=== PATIENT | male | born 1995 | race Caucasian/White ===

== ENCOUNTER → 2019-08-18 15:27 | Outpatient (BNVA) | payer MEDICARE, MEDICAID, SELFPAY | PROVIDERS: Family Provider Nurse Practitioner; PCP Nurse Practitioner; Visit Provider Nurse Practitioner | DX: M25.562 Pain in left knee (principal) | CPT/HCPCS: 73562 ==

== ENCOUNTER → 2019-08-31 08:41 | Outpatient (BNVA) | payer MEDICARE, MEDICAID, SELFPAY | PROVIDERS: Family Provider Nurse Practitioner; PCP Nurse Practitioner; Visit Provider Specialist | DX: G40.209 Localization-related (focal) (partial) symptomatic epilepsy and epileptic syndromes with complex partial seizures, not intractable, without status epilepticus (principal) | CPT/HCPCS: 99214 ==

== ENCOUNTER 2019-09-01 06:00 | Outpatient (RCR) | payer MEDICARE, SELFPAY | END 2019-09-27 23:59 | disposition home or self-care (01) | LOC: APT 06:00 | PROVIDERS: Family Provider Nurse Practitioner; PCP Nurse Practitioner; Referring Provider Nurse Practitioner; Visit Provider Nurse Practitioner | DX: M25.562 Pain in left knee (principal) | CPT/HCPCS: 97110; 97161 ==

== ENCOUNTER 2019-11-07 21:01 | Emergency (ER) | payer MEDICARE, MEDICAID, SELFPAY ==
--- NOTE | 2019-11-07 21:16 | XRR_ITS ---
PROCEDURE INFORMATION: Exam: XR Left Knee Exam date and time: 11/07/2019 9:16 PM Age: 24 years old Clinical indication: Pain; Knee; Left; Patient HX: Citrus a pop; Additional info: Injury TECHNIQUE: Imaging protocol: XR Left knee. Views: 3 views. COMPARISON: No relevant prior studies available. FINDINGS: Bones/joints: Normal. Soft tissues: Normal. XR/XR knee LT 3V* [id number] IMPRESSION: No acute findings.
[2019-11-07 21:48] VITALS: BP 103/62; PULSE 92; RESP 18; TEMP 36.8; O2SAT 97; BMI 17.1
--- NOTE | 2019-11-07 22:31 | ED_ITS ---
HPI - Extremity Problem General: Chief complaint: Extremity Injury, Lower Stated complaint: left knee pain Time Seen by Provider: 11/07/19 22:31 Source: patient Mode of arrival: ambulatory Limitations: no limitations History of Present Illness: HPI Narrative: Patient comes in for left knee pain. Patient reports that he was going down the stairs a couple days ago and felt a pop in his knee and has been unable to tolerate going up and down the stairs. Patient has been having problems with his knee since July. Patient appears well. Patient appears in no acute distress. Mother reports patient has Asperger's syndrome and does not express pain very well. 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 Environmental and seasonal allergies Schizencephaly Scoliosis of thoracic spine Vitamin D insufficiency Surgical History History of tonsillectomy and adenoidectomy Status post left foot surgery Bunionectomy Family History Other Cancer Diabetes Lung disease Social History Smoking and tobacco status: never smoked Second hand smoke exposure: No Smoking risk assessment/counseling performed?: No Alcohol intake: never Desire information about alcohol rehabilitation?: No Counseling given: No Desire information about substance/drug rehabilitation?: No Counseling given: No Caregiver/support person: Yes Lives independently: No Household members: family Housing: House Marital status: Single Number of children: 0 service: No Current occupational status: disabled History of recent travel: No Current gender identity: Male Physical Exam Const: COMMON NORMALS: no acute distress and patient oriented x3 GENERAL APPEARANCE: cooperative HENMT: COMMON NORMALS: normocephalic and Normal external nose present HEAD & SCALP: normal to inspection and normocephalic NOSE: Normal external nose present Eye: GENERAL EYE: appearance normal, both eyes and all related structures Neck/C-Spine: COMMON NORMALS: full ROM Chest: COMMONS NORMALS: normal inspection of the chest Resp: COMMON NORMALS: normal respiratory effort EFFORT & INSPECTION: Yes able to speak in complete sentences Cardio: COMMON NORMALS: regular rate and regular rhythm RATE: regular rate RHYTHM: regular rhythm GI: COMMON NORMALS: non-tender Back/Pelvis: COMMON NORMALS: thoracic and lumbar spine normal to inspection Extremity: NARRATIVE EXTREMITY EXAM: Patella is freely mobile but tendon does feel intact to the left knee. No obvious deformity is noted to the knee. Distal pulses are intact. Neuro: COMMON NORMALS: patient oriented x3 and moves all extremities Psych: COMMON NORMALS: mental status grossly normal and cooperative Skin: COMMON NORMALS: no rashes or lesions noted GENERAL SKIN EXAM: no rashes or lesions noted Course Vital Signs: Vital signs: Vital Signs Temperature 98.2 F 11/07/19 21:48 Pulse Rate 92 11/07/19 21:48 Respiratory Rate 18 11/07/19 21:48 Blood Pressure 103/62 11/07/19 21:48 Pulse Oximetry 97 11/07/19 21:48 MDM - Extremity (Nontraumatic) MDM Narrative: Medical decision making narrative: Patient was brought in by mother for concerns of left knee pain. On exam patient has a freely mobile patella with some mild proximal patella tenderness along the tendon. No obvious swelling or redness is noted to the joint. Differential diagnosis includes sprain, patellofemoral syndrome, malingering. X-ray noted no obvious injury. To the patient's increased pain with going up and down the stairs think patient probably has a patellofemoral syndrome. Recommended naproxen for the next 10 days and ice or heat otherwise as needed for pain. We will go ahead and place a case management request for orthopedic follow-up for further evaluation and treatment. Mother reports understanding agreed to plan. Discharge Plan Discharge Patient Disposition: Home, Self-Care Clinical Impression: Patella-femoral syndrome Qualifiers: Laterality: left Qualified Code(s): M22.2X2 - Patellofemoral disorders, left knee Condition: Stable Prescriptions: New naproxen 375 mg tablet,delayed release (DR/EC) 375 mg PO BID Qty: 20 RF: 0 No Action lamotrigine [Lamictal] 200 mg tablet 200 mg PO BID Qty: 60 RF: 5 levetiracetam [Keppra] 500 mg tablet 500 mg PO BID Qty: 60 RF: 6 olanzapine [Zyprexa] 5 mg tablet 5 mg PO DAILY Qty: 30 RF: 5 lorazepam 2 mg tablet 2 mg PO DAILY PRN (Reason: seizures) Qty: 10 RF: 2 Discharge Orders: Discharge Order (Routine); Ordered 11/07/19 Ordered By: Angelito Cook Referrals: Sia Valdez, QUALITY RN-C [Primary Care Provider] - Discharge Diet: Usual diet Discharge Activity: Increase activity as tolerated Patient Instructions: Patellofemoral Pain Syndrome (ED) Activity Restrictions/Additional Instructions: Activity as tolerated. Use acetaminophen for further pain control. Use ice or heat to the area for further comfort. Increase activity as tolerated. Case management will contact you regarding follow-up with orthopedist for further evaluation and treatment. Discharge Date/Time: 11/07/19 23:07 Coding Level of Care Code ED Building Drafting Officer for Makenzie Fwd Exam Comprehensive
--- NOTE | 2019-11-09 12:44 | DCPLANNER ---
business management manager had message to schedule a follow up appointment for patient. business management manager called the ortho clinic, spoke with Pat, gave clinic patients information. business management manager was told that patients information would be printed and reviewed. Clinic will call patient with appointment information.
--- NOTE | 2019-11-11 14:08 | DCPLANNER ---
Patient has a follow up appointment scheduled for Saturday, November 23, 2019 at 1:[address] Velez. Clinic has called patient, unable to speak with patient, a voicemail was left for patient concerning that appointment information.
--- NOTE | 2019-12-10 14:34 | DCPLANNER ---
Patient had a follow up appointment scheduled for 11.23.19 with ortho - patient did attend appointment.
== END 2019-11-07 23:07 | disposition home or self-care (01) ==
PROVIDERS: Emergency Provider Nurse Practitioner Family; PCP Nurse Practitioner
DX: M22.2X2 Patellofemoral disorders, left knee (principal); F84.5 Asperger's syndrome
CPT/HCPCS: 12345; 73562; 99281; 99283

== ENCOUNTER → 2019-11-23 13:05 | Outpatient (BNVA) | payer MEDICARE, MEDICAID, SELFPAY | PROVIDERS: PCP Nurse Practitioner; Referring Provider Nurse Practitioner Family; Visit Provider Specialist | DX: M25.562 Pain in left knee (principal); M25.561 Pain in right knee | CPT/HCPCS: 73560; 73565 ==

== ENCOUNTER 2019-12-03 15:16 | Outpatient (CLI) | payer MEDICARE, MEDICAID, SELFPAY ==
--- NOTE | 2019-12-03 16:00 | MR_ITS ---
WS: [id number] MRI LEFT KNEE HISTORY: M25.569 Pain in unspecified knee COMPARISON: 11/23/2019 Anterior cruciate ligament: Intact. Posterior cruciate ligament: Intact. Medial collateral ligament: Intact. Posterior lateral corner structures: Intact. Medial menisci: Intact. Normal signal, size and shape. Lateral meniscus: Intact. Normal signal, size and shape. Extensor mechanism: Distal quadriceps tendon and patellar tendons are intact. Fluid and soft tissue: There is a small suprapatellar joint effusion. Small amount of edema in the so ft tissues around the patella and infrapatellar fat pad. No Scott's cyst. Osseous and articular structures: Patellofemoral compartment: There is a bony protuberance from the posterior patella. Protuberance is just medial to the patellar eminence. This bony protuberance measures 13 mm in diameter and causing n arrowing of the medial patellar femoral facet. There is edema within the bony protuberance. I suspect this may be from a prior injury with mild displaced fragment and may be partially healed. There is t hinning of the overlying cartilage there is additional mild edema throughout the mid and inferior pat benoit. Medial compartment: Normal. Lateral compartment: Normal. MR/MR knee LT wo con* [id number] IMPRESSION: 1. Abnormal bony or osteochondral lesion involving the posterior patella. Ther e is marrow edema with a bony protuberance measuring 13 mm. Loss of cartilage o teri the medial patellar facet. This may be an osteochondral lesion or displaced fracture fragment or osteochondral fragment. Causing significant narrowing of patellofemoral joint space. 2. Small joint effusion.
== END 2019-12-03 15:17 | disposition home or self-care (01) ==
LOC: RADSHAW 15:27
PROVIDERS: PCP Nurse Practitioner; Visit Provider Specialist
DX: M25.562 Pain in left knee (principal); M25.462 Effusion, left knee; R60.0 Localized edema
CPT/HCPCS: 73721

== ENCOUNTER → 2020-03-10 10:04 | Outpatient (BNVA) | payer MEDICARE, MEDICAID, SELFPAY | PROVIDERS: PCP Nurse Practitioner; Visit Provider Specialist | DX: G40.209 Localization-related (focal) (partial) symptomatic epilepsy and epileptic syndromes with complex partial seizures, not intractable, without status epilepticus (principal) | CPT/HCPCS: 95816 ==

== ENCOUNTER → 2020-07-14 11:50 | Outpatient (BNVA) | payer MEDICARE, MEDICAID, SELFPAY | PROVIDERS: PCP Nurse Practitioner; Visit Provider Nurse Practitioner Family | DX: J02.9 Acute pharyngitis, unspecified (principal); R11.2 Nausea with vomiting, unspecified | CPT/HCPCS: 87071; 87880 ==

== ENCOUNTER → 2020-08-31 12:46 | Outpatient (BNVA) | payer MEDICARE, MEDICAID, SELFPAY | PROVIDERS: PCP Nurse Practitioner; Visit Provider Specialist | DX: G40.209 Localization-related (focal) (partial) symptomatic epilepsy and epileptic syndromes with complex partial seizures, not intractable, without status epilepticus (principal) | CPT/HCPCS: 99214 ==

== ENCOUNTER → 2020-12-02 11:47 | Outpatient (BNVA) | payer MEDICARE, MEDICAID, SELFPAY | PROVIDERS: PCP Nurse Practitioner; Visit Provider Registered Nurse Neonatal Intensive Care | DX: Z20.822 Contact with and (suspected) exposure to COVID-19 (principal) | CPT/HCPCS: 87635 ==

== ENCOUNTER → 2021-03-07 09:35 | Outpatient (BNVA) | payer MEDICARE, MEDICAID, SELFPAY | PROVIDERS: PCP Nurse Practitioner; Visit Provider Specialist | DX: G40.209 Localization-related (focal) (partial) symptomatic epilepsy and epileptic syndromes with complex partial seizures, not intractable, without status epilepticus (principal); F84.5 Asperger's syndrome; Q04.9 Congenital malformation of brain, unspecified | CPT/HCPCS: 99214 ==

== ENCOUNTER → 2021-09-05 09:17 | Outpatient (BNVA) | payer MEDICARE, MEDICAID, SELFPAY | PROVIDERS: PCP Nurse Practitioner; Visit Provider Specialist | DX: G40.209 Localization-related (focal) (partial) symptomatic epilepsy and epileptic syndromes with complex partial seizures, not intractable, without status epilepticus (principal); F84.5 Asperger's syndrome; Q04.9 Congenital malformation of brain, unspecified | CPT/HCPCS: 99213; 99214 ==

== ENCOUNTER 2021-09-24 18:11 | Emergency (ER) | payer MEDICARE, MEDICAID, SELFPAY ==
[2021-09-24 18:14] VITALS: BP 107/73; PULSE 82; RESP 12; TEMP 36.3; O2SAT 97; BMI 17.1
--- NOTE | 2021-09-24 18:26 | CTR_ITS ---
PROCEDURE INFORMATION: Exam: CT Abdomen And Pelvis With Contrast Exam date and time: 09/24/2021 7:17 PM Age: 26 years old Clinical indication: Nausea and vomiting; Abdominal pain; Generalized; Additional info: Abdominal pain, nausea, vomiting, hematemesis TECHNIQUE: Imaging protocol: Computed tomography of the abdomen and pelvis with contrast. Radiation optimization: All CT scans at this facility use at least one of these dose optimization techniques: automated exposure control; mA and/or kV adjustment per patient size (includes targeted exams where dose is matched to clinical indication); or iterative reconstruction. Contrast material: OMNI 300; Contrast volume: 50 ml; Contrast route: INTRAVENOUS (IV); COMPARISON: No relevant prior studies available. RADIATION DOSE METRICS: Total DLP (mGy-cm): 757.42 FINDINGS: Liver: Periportal edema with differential diagnosis including but not limited to hepatitis, cholangitis, passive hepatic congestion or volume overload. Gallbladder and bile ducts: See Liver finding. Pancreas: Normal. No ductal dilation. Spleen: Normal. No splenomegaly. Adrenal glands: Normal. No mass. Kidneys and ureters: Normal. No hydronephrosis. Stomach and bowel: Unremarkable. No obstruction. No mucosal thickening. Appendix: Normal appendix. Intraperitoneal space: Unremarkable. No free air. No significant fluid collection. Vasculature: One or more calcified pelvic phleboliths. Lymph nodes: Unremarkable. No enlarged lymph nodes. Urinary bladder: Unremarkable as visualized. Reproductive: Unremarkable as visualized. Bones/joints: Unremarkable. No acute fracture. Soft tissues: Unremarkable. CT/CT abdomen pelvis w con* [id number] IMPRESSION: Periportal edema with differential diagnosis including but not limited to hepatitis, cholangitis, passive hepatic congestion or volume overload.
--- NOTE | 2021-09-24 18:27 | CTR_ITS ---
PROCEDURE INFORMATION: Exam: CT Head Without Contrast Exam date and time: 09/24/2021 7:13 PM Age: 26 years old Clinical indication: Pain; Headache; Additional info: PRINCE TECHNIQUE: Imaging protocol: Computed tomography of the head without contrast. Radiation optimization: All CT scans at this facility use at least one of these dose optimization techniques: automated exposure control; mA and/or kV adjustment per patient size (includes targeted exams where dose is matched to clinical indication); or iterative reconstruction. COMPARISON: CT head wo con* [id number] 11/05/2014 5:55 PM RADIATION DOSE METRICS: Total DLP (mGy-cm): 929.33 FINDINGS: Brain: Normal. No hemorrhage. Unremarkable white matter. No mass effect. Cerebral ventricles: No ventriculomegaly. Paranasal sinuses: Visualized sinuses are unremarkable. No fluid levels. Mastoid air cells: Visualized mastoid air cells are well aerated. Bones/joints: Unremarkable. No acute fracture. Soft tissues: Unremarkable. CT/CT head wo con* [id number] IMPRESSION: No acute intracranial abnormality.
--- NOTE | 2021-09-24 18:28 | W.ED.ABDPA2 ---
HPI - Abdominal Pain General: Chief Complaint: Abdominal Pain Stated Complaint: vomiting blood Time Seen by Provider: 09/24/21 18:20 History of Present Illness: 26-year-old presents due to headache abdominal pain nausea and vomiting. States this started today. Reports mild frontal headache. Denies any neck pain. Denies any fevers or chills. Denies any focal numbness or tingling. Reports that after dinner he felt nauseous and had an episode of hematemesis. Denies any blood in stool. Denies any diarrhea or constipation. Diffuse achy abdominal pain without radiation. Denies any dysuria. Denies any testicular pain. Denies any recent head injury or blood thinner use. Review of Systems Narrative: - CONSTITUTIONAL: Denies weight loss, fever and chills. - HEENT: Denies changes in vision and hearing. - RESPIRATORY: Denies SOB and cough. - CV: Denies palpitations and CP. - GI: As above - : Denies dysuria and urinary frequency. - MSK: Denies myalgia and joint pain. - SKIN: Denies rash and pruritus. 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 Environmental and seasonal allergies Schizencephaly Scoliosis of thoracic spine Vitamin D insufficiency Surgical History History of tonsillectomy and adenoidectomy Status post left foot surgery Bunionectomy Family History Other Cancer Diabetes Lung disease Social History Smoking and tobacco status: never smoked Second hand smoke exposure: No Smoking risk assessment/counseling performed?: No Alcohol intake: never Desire information about alcohol rehabilitation?: No Counseling given: No Desire information about substance/drug rehabilitation?: No Counseling given: No Caregiver/support person: Yes Lives independently: No Household members: family Housing: House Marital status: Single Number of children: 0 service: No Current occupational status: disabled History of recent travel: No Current gender identity: Male Physical Exam Narrative: EXAM NARRATIVE: - GENERAL: Alert and oriented x 3. No acute distress. Well-nourished. - EYES: EOMI. Anicteric. - HENT: Atraumatic, no C-spine tenderness. Moist mucous membranes. No scleral icterus. No cervical lymphadenopathy. - LUNGS: Clear to auscultation bilaterally. No accessory muscle use. Equal lung sounds bilaterally. No respiratory distress. - CARDIOVASCULAR: Regular rate and rhythm. No murmur. No JVD. - ABDOMEN: Soft, mild diffuse tenderness, non-distended. Negative CVA tenderness bilaterally, no rebound or guarding, negative Herman sign. No palpable masses. - EXTREMITIES: No edema. Non-tender. - SKIN: No rashes or lesions. Warm. - NEUROLOGIC: No meningismus or focal neurological deficits. CN II-XII grossly intact. - PSYCHIATRIC: Cooperative. Appropriate mood and affect. Course Vital Signs: Vital signs: Vital Signs Temperature 97.4 F L 09/24/21 18:14 Pulse Rate 63 09/24/21 20:30 Respiratory Rate 16 09/24/21 20:30 Blood Pressure 99/62 09/24/21 20:30 Pulse Oximetry 98 09/24/21 20:30 MDM - Abdominal Pain Medical Decision Making 26-year-old presents for headache abdominal pain nausea and vomiting. Nonfocal neurologic sign. Is no meningismus. No clinical signs of elevated intracranial pressure. CT scan of the head does not reveal any intracranial hemorrhage or other acute abnormality. Lab work unremarkable. CT scan of the abdomen pelvis reveals possible portal congestion. Ultrasound reveals gallbladder wall thickening but there is no sonographic Herman sign. His abdominal pain is diffuse. LFTs are within normal. Discussed with surgeon on-call at this time does not recommend admission or cholecystectomy. Prescription for Bentyl and Zofran provided. At this time I believe patient would be safe for discharge and outpatient follow-up. Return precautions provided. Plan was reviewed with the patient who expressed understanding. Questions answered. Patient will follow up with PCP. Patient discharged in stable condition. Lab Data : 09/24/21 18:30 09/24/21 18:30 Labs/Radiology: Radiology Impressions Abdomen/Pelvis CT 09/24/21 18:26 IMPRESSION: Periportal edema with differential diagnosis including but not limited to hepatitis, cholangitis, passive hepatic congestion or volume overload. Head CT 09/24/21 18:27 IMPRESSION: No acute intracranial abnormality. Abdomen Ultrasound 09/24/21 20:13 IMPRESSION: Possible 4.5 mm gallbladder wall thickening cholecystitis. In the presence of periportal edema on CT scan, this is most likely secondary to hepatitis. Laboratory Results WBC 4.8 10^3/uL (4.0-10.0) 09/24/21 18: RBC 4.56 10^6/uL (4.1-5.3) 09/24/21 18: Hgb 13.6 g/dL (11.7-16.6) 09/24/21 18: Hct 40.3 % (42.0-52.0) L 09/24/21 18: MCV 88.4 fl (80-94) 09/24/21 18: MCH 29.8 pg (28.0-34.0) 09/24/21 18: MCHC 33.7 g/dL (30.0-36.0) 09/24/21 18: RDW 12.3 % (12.1-15.1) 09/24/21 18: Plt Count 193 10^3/cmm (130-400) 09/24/21 18: MPV 9.8 fL (7.4-10.4) 09/24/21 18: Neut % (Auto) 51.4 % 09/24/21 18:30 Lymph % (Auto) 38.4 % 09/24/21 18:30 [place] % (Auto) 9.8 % 09/24/21 18: Eos % (Auto) 0.0 % 09/24/21 18: Baso % (Auto) 0.0 % 09/24/21 18:30 Neut # (Auto) 2.46 10^3/uL (1.8-7.7) 09/24/21 18: Lymph # (Auto) 1.8 10^3/uL (0.8-4.8) 09/24/21 18: [place] # (Auto) 0.5 10^3/uL (0.2-0.9) 09/24/21 18:30 Eos # (Auto) 0.0 10^3/uL (0.0-0.8) 09/24/21 18: Baso # (Auto) 0.0 10^3/uL (0.0-0.1) 09/24/21 18:30 Nucleated RBC % (auto) 0 % 09/24/21 18: Nucleated RBCs # 0.0 /100WBC 09/24/21 18:30 PT 16.40 SECONDS (12.1-14.9) H 09/24/21 18:38 INR 1.28 (0.8-1.2) H 09/24/21 18:38 APTT 35.3 SECONDS (23.9-36.7) 09/24/21 18:38 Sodium 135 mmol/L (136-145) L 09/24/21 18:30 Potassium 3.6 mmol/L (3.5-5.1) 09/24/21 18: Chloride 96 mmol/L (98-107) L 09/24/21 18: Carbon Dioxide 29 mmol/L (22-29) 09/24/21 18:30 Anion Gap 13.6 (5-19) 09/24/21 18: BUN 3 mg/dL (6-20) L 09/24/21 18:30 Creatinine 0.8 mg/dL (0.7-1.2) 09/24/21 18: GFR Calculation 117.8 mL/min (90-130) 09/24/21 18: Glucose 86 mg/dL (65-115) 09/24/21 18: Calculated Osmolality 276 mOsm/kg (285-295) L 09/24/21 18: Calcium 9.2 mg/dL (8.5-10.5) 09/24/21 18: Total Bilirubin 0.5 mg/dL (0.15-1.2) 09/24/21 18:30 AST 20 U/L (0-40) 09/24/21 18:30 ALT 16 U/L (0-41) 09/24/21 18:30 Alkaline Phosphatase 123 IU/L (40-130) 09/24/21 18:30 Total Protein 7.2 g/dL (6.6-8.7) 09/24/21 18:30 Albumin 4.7 g/dL (3.5-5.2) 09/24/21 18: Globulin 2.5 g/dL (1.3-4.6) 09/24/21 18:30 Lipase 33 U/L (13-60) 09/24/21 18:30 Urine Color Straw (Yellow) 09/24/21 18:50 Urine Appearance Clear (CLEAR) 09/24/21 18:50 Urine pH 6.5 (5-7) 09/24/21 18:50 Ur Specific [place] 1.005 (1.005-1.030) 09/24/21 18:50 Urine Protein Neg (Negative) 09/24/21 18:50 Urine Glucose (UA) Norm (Normal) 09/24/21 18:50 Urine Ketones Negative (Negative) 09/24/21 18:50 Urine Blood Neg (Negative) 09/24/21 18:50 Urine Nitrate Negative (Negative) 09/24/21 18:50 Urine Bilirubin Neg (Negative) 09/24/21 18:50 Urine Urobilinogen Norm mg/dL (Negative) 09/24/21 18:50 Ur Leukocyte Esterase Negative (Negative) 09/24/21 18:50 Urine RBC None /hpf (0-2) 09/24/21 18:50 Urine WBC None /hpf (0-5) 09/24/21 18:50 Ur Squamous Epith Cells None /hpf (0-5) 09/24/21 18:50 Amorphous Sediment Not Reportable 09/24/21 18:50 Urine Bacteria None /hpf (NONE) 09/24/21 18:50 SARS-CoV-2 Ag (Rapid) Negative (Negative) 09/24/21 18:50 Discharge Plan Discharge Patient Disposition: Home Clinical Impression: Abdominal pain, Headache Condition: Stable Prescriptions: New ondansetron 4 mg tablet,disintegrating 4 mg PO DAILY PRN (Reason: nausea and vomiting) 3 Days Qty: 10 0RF dicyclomine 20 mg tablet 20 mg PO TID Qty: 14 0RF No Action ondansetron HCl [Zofran] 4 mg tablet 4 mg PO Q8H PRN (Reason: nausea and vomiting) 7 Days Qty: 21 0RF lamotrigine [Lamictal] 200 mg tablet 200 mg PO BID Qty: 60 5RF levetiracetam [Keppra] 500 mg tablet 500 mg PO BID Qty: 60 5RF lorazepam 2 mg tablet 2 mg PO DAILY PRN (Reason: seizures) Qty: 30 5RF olanzapine 10 mg tablet 10 mg PO DAILY Qty: 30 5RF naproxen 375 mg tablet,delayed release (DR/EC) 375 mg PO BID Qty: 20 0RF Discharge Orders: Discharge ED (Routine); Ordered 09/24/21 Ordered By: Stephan Friend Referrals: Sia Valdez FNP-C [Primary Care Provider] - 1-3 days Patient Instructions: Acute Headache (ED), Abdominal Pain (ED), Opioid Safety Coding Level of Care Code ED Billing Machine Operator for Makenzie Medina
[2021-09-24 18:36] LABS: Hematocrit 40.3 % (42.0-52.0); Hemoglobin 13.6 g/dL (11.7-16.6); Lymphocytes # 1.8 10^3/uL (0.8-4.8); Lymphocytes % 38.4 %; Mean Corpuscular HGB Conc 33.7 g/dL (30.0-36.0); Mean Corpuscular Hemoglobin 29.8 pg (28.0-34.0); Mean Corpuscular Volume 88.4 fl (80-94); Mean Platelet Volume 9.8 fL (7.4-10.4); Monocytes # 0.5 10^3/uL (0.2-0.9); Monocytes % 9.8 %; Neutrophils # 2.46 10^3/uL (1.8-7.7); Neutrophils % 51.4 %; Nucleated Red Blood Cells % 0 %; Platelet Count 193 10^3/cmm (130-400); Red Blood Count 4.56 10^6/uL (4.1-5.3); Red Cell Distribution Width 12.3 % (12.1-15.1); White Blood Count 4.8 10^3/uL (4.0-10.0)
[2021-09-24] MEDS: sodium chloride 0.9% 1,000 ML 999 ML IV (18:45)
[2021-09-24] MEDS: pantoprazole 40 mg SDV IVP (18:46)
[2021-09-24] MEDS: ondansetron 2 mg/ML SDV 2 mL 4 MG IVP (18:46)
[2021-09-24 18:49] VITALS: BP 119/77; PULSE 68; RESP 18; O2SAT 96
[2021-09-24 18:53] LABS: Alanine Aminotransferase 16 U/L (0-41); Albumin Level 4.7 g/dL (3.5-5.2); Alkaline Phosphatase 123 IU/L (40-130); Anion Gap 13.6 (5-19); Aspartate Amino Transferase 20 U/L (0-40); Blood Urea Nitrogen 3 mg/dL (6-20); Calcium 9.2 mg/dL (8.5-10.5); Carbon Dioxide 29 mmol/L (22-29); Chloride 96 mmol/L (98-107); Globulin 2.5 g/dL (1.3-4.6); Glomerular Filtration Rate 117.8 mL/min (90-130); Glucose 86 mg/dL (65-115); Lipase 33 U/L (13-60); Osmolality Calculated 276 mOsm/kg (285-295); Potassium 3.6 mmol/L (3.5-5.1); Sodium 135 mmol/L (136-145); Total Bilirubin 0.5 mg/dL (0.15-1.2); Total Protein 7.2 g/dL (6.6-8.7)
[2021-09-24 18:55] LABS: INR 1.28 (0.8-1.2)
[2021-09-24 18:56] LABS: Partial Thromboplastin Time 35.3 SECONDS (23.9-36.7)
[2021-09-24 19:08] LABS: Bilirubin Urine Neg (Negative); Blood Urine Neg (Negative); Glucose Urine UA Norm (Normal); Ketones Urine Negative (Negative); Nitrate Urine Negative (Negative); Protein Urine Neg (Negative); Specific Gravity, Urine 1.005 (1.005-1.030); Urine Appearance Clear (CLEAR); Urine Color Straw (Yellow); Urobilinogen Urine Norm (Negative); pH Urine 6.5 (5-7)
[2021-09-24 19:09] LABS: Add Urine Culture? No; Leukocyte Esterase Urine Negative (Negative)
[2021-09-24 19:30] VITALS: BP 111/76; PULSE 77; RESP 18; O2SAT 98
[2021-09-24 19:32] LABS: SARS Covid-2 Antigen Negative (Negative)
[2021-09-24 20:00] VITALS: BP 93/63; PULSE 63; RESP 20; O2SAT 97
--- NOTE | 2021-09-24 20:13 | USR_ITS ---
PROCEDURE INFORMATION: Exam: US Abdomen, Limited; Right Upper Quadrant Exam date and time: 09/24/2021 8:26 PM Age: 26 years old Clinical indication: Vomiting; Additional info: Ruq portal congestion on CT TECHNIQUE: Imaging protocol: US abdomen. Real time ultrasound with image documentation. Limited exam focused on the right upper quadrant. COMPARISON: CT abdomen pelvis w con* [id number] 09/24/2021 7:17 PM FINDINGS: Liver: 16.9 cm liver. Gallbladder: Possible 4.5 mm gallbladder wall thickening cholecystitis. In the presence of periportal edema on CT scan, this is most likely secondary to hepatitis. Biliary ducts: 3 mm common bile duct. Pancreas: Visualized pancreas is unremarkable. Right kidney: Normal. No mass. No hydronephrosis. Aorta: 1.7 cm abdominal aortic diameter. Inferior vena cava: 2.1 cm IVC. US/US abdomen limited [id number] IMPRESSION: Possible 4.5 mm gallbladder wall thickening cholecystitis. In the presence of periportal edema on CT scan, this is most likely secondary to hepatitis.
[2021-09-24 20:30] VITALS: BP 99/62; PULSE 63; RESP 16; O2SAT 98
[2021-09-24] MEDS: iohexol 300 mg/mL 100 mL Btl IV (23:16)
== END 2021-09-24 22:23 | disposition home or self-care (01) ==
PROVIDERS: Emergency Provider Emergency Medicine; PCP Nurse Practitioner
DX: R10.9 Unspecified abdominal pain (principal); R51.9 Headache, unspecified; R11.2 Nausea with vomiting, unspecified; Z20.822 Contact with and (suspected) exposure to COVID-19
CPT/HCPCS: 70450; 74177; 76705; 80053; 81001; 83690; 85025; 85610; 85730; 87426; 96361; 96374; 96375; 99284; C9113; J2405; J7030; Q9967

== ENCOUNTER → 2021-09-29 10:16 | Outpatient (BNVA) | payer MEDICARE, MEDICAID, SELFPAY | PROVIDERS: PCP Nurse Practitioner; Visit Provider Nurse Practitioner Family | DX: K81.9 Cholecystitis, unspecified (principal); R93.2 Abnormal findings on diagnostic imaging of liver and biliary tract | CPT/HCPCS: 80053; 82150; 83690; 85025 ==

== ENCOUNTER → 2021-10-04 13:14 | Outpatient (BNVA) | payer MEDICARE, MEDICAID, SELFPAY | PROVIDERS: PCP Nurse Practitioner; Visit Provider Surgery | DX: K92.0 Hematemesis (principal); R10.9 Unspecified abdominal pain | CPT/HCPCS: 99203 ==

== ENCOUNTER 2021-11-16 06:13 | Day surgery (SDC) | payer MEDICARE, MEDICAID, SELFPAY ==
[2021-11-14 08:47] VITALS: BMI 16.9
[2021-11-16 06:55] VITALS: BP 130/76; PULSE 85; RESP 18; TEMP 36.2; O2SAT 96
[2021-11-16] MEDS: sodium chloride 0.9% 1,000 ML 30 ML IV (07:09)
--- NOTE | 2021-11-16 08:05 | PM.HP ---
Providers/Chief Complaint Primary Care Provider: KARLENE Cardenas Chief Complaint: Nausea vomiting abdominal pain hematemesis History of Present Illness Geraldo Manuel is a 26 year old male, with mental deficiencies, who presented to the office with complaints of nausea and vomiting with overexertion on hot days followed by hematemesis. Patient's mother reports that he gets epigastric pain at times not related to food intake. The pain does not radiate. Gallbladder ultrasound was essentially normal but did show some perihepatic fluid. This is an update H&P Review of Systems General: Reports: 10 or more systems reviewed and unremarkable except in HPI and below Medications/Allergies Home Medications Medication Instructions Recorded Confirmed Last Taken Type ondansetron HCl 4 mg tablet 4 mg PO Q8H PRN 7 Days #21 tab 07/14/20 11/16/21 11/14/21 Rx (Zofran) lamotrigine 200 mg tablet 200 mg PO BID #60 tab 09/05/21 11/16/21 11/16/21 Rx (Lamictal) 0600 levetiracetam 500 mg tablet 500 mg PO BID #60 tab 09/05/21 11/16/21 11/16/21 Rx (Keppra) 0600 lorazepam 2 mg tablet 2 mg PO DAILY PRN #30 tab 09/05/21 11/16/21 11/14/21 Rx olanzapine 10 mg tablet 10 mg PO DAILY #30 tab 09/05/21 11/16/21 11/15/21 Rx naproxen 375 mg tablet,delayed 375 mg PO PRN 11/16/21 11/16/21 11/02/21 History release Allergies Allergy/AdvReac Type Severity Reaction Status Date / Time risperidone [From Risperdal] AdvReac Severe Seizure Verified 11/14/21 08:41 like activity PFSH Acute PFSH: Medical History ADD (attention deficit disorder) ADHD Adult attention deficit disorder Asperger's syndrome 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 Environmental and seasonal allergies Schizencephaly Scoliosis of thoracic spine Vitamin D insufficiency Surgical History History of tonsillectomy and adenoidectomy Status post left foot surgery Bunionectomy Family History Other Cancer Diabetes Lung disease Social History Smoking and tobacco status: never smoked Second hand smoke exposure: No Smoking risk assessment/counseling performed?: No Alcohol intake: never Desire information about alcohol rehabilitation?: No Counseling given: No Desire information about substance/drug rehabilitation?: No Counseling given: No Caregiver/support person: Yes Lives independently: No Household members: family Housing: House Marital status: Single Number of children: 0 service: No Current occupational status: disabled History of recent travel: No Current gender identity: Male Vitals/I&O/Wt Last Vital Signs Temp 97.1 F L 11/16/21 06:55 Pulse 85 11/16/21 06:55 Resp 18 11/16/21 06:55 BP 130/76 11/16/21 06:55 Pulse Ox 96 11/16/21 06:55 Weight last 48 hrs Weight 125 lb Physical Exam Narrative: General : Patient is well developed , no acute distress, oriented x3 Head : Normal cephalic, a-traumatic. Ears : Pinnae and external canal are normal. Hearing is normal. Eyes : PERRLA, Sclera and injection are normal. No conjunctival discharge. Nose : Mucous membranes are without erythema. Throat : buccal mucosa is normal, gums are without significant recession or hypertrophy. Lungs : Equal chest rise bilaterally, no use of accessory muscles, trachea is midline. Cor : Rate and rhythm are normal. Abdomen : Soft, ND, NT, no g/r/m Extremities : No edema, no cyanosis or clubbing, dorsalis pedis pulses are present bilaterally, non-tender to palpation of calves. Upper extremities are normal bilaterally. Back : non-tender to palpation, no CVA tenderness. Neuro : CN II - XII intact, Upper and lower extremities have equal and full strength A&P Assessment and plan (1) Hematemesis: Status: Acute (2) Abdominal pain: Status: Acute Plan EGD The risks and benefits of the procedure, including bleeding, infection, intestinal perforation requiring surgery, missed lesion, or explained to the patient. He is understanding of the risks and wishes to proceed. Attestations Medical Necessity Statement*: Patient will be discharged home Coding Level of Care Code Acute Special Needs Bus Driver for [facility] Fwd Diagnoses Hematemesis K92.0 Abdominal pain R10.9
--- NOTE | 2021-11-16 08:11 | ANES.PREANE2 ---
Pre-Anesthetic Assessment Height/Weight: Height 1.83 m Weight 56.699 kg Temp Pulse Resp BP Pulse Ox 97.1 F L 85 18 130/76 96 11/16/21 06:55 11/16/21 06:55 11/16/21 06:55 11/16/21 06:55 11/16/21 06:55 Operation Date: 11/16/21 08:00 Proposed Procedures p EGD 04822,R10.9,K92.0(Not Applicable) - Daryn Schultz DO Familial anesthetic complications: none Was Beta Tesha taken within 24 hours: N/A Was Clonidine taken within 24 hours: N/A Last intake: Intake Last Liquid Date 11/15/21 Last Liquid Time 19:00 Last Solid Date 11/15/21 Last Solid Time 17:00 Social No alcohol and No tobacco Exam alert, oriented x 3, clear to auscultation bilaterally and regular rate & rhythm Airway Submandibular: within normal limits Cervical ROM: within normal limits Mallampati: Class II Dentition: chipped Neuropsych Seizure Asperger's Anesthetic Plan ASA status: 2 Anesthesia: MAC Medications/Allergies Home Medications Medication Instructions Recorded Confirmed Last Taken Type ondansetron HCl 4 mg tablet 4 mg PO Q8H PRN 7 Days #21 tab 07/14/20 11/16/21 11/14/21 Rx (Zofran) lamotrigine 200 mg tablet 200 mg PO BID #60 tab 09/05/21 11/16/21 11/16/21 Rx (Lamictal) 0600 levetiracetam 500 mg tablet 500 mg PO BID #60 tab 09/05/21 11/16/21 11/16/21 Rx (Keppra) 0600 lorazepam 2 mg tablet 2 mg PO DAILY PRN #30 tab 09/05/21 11/16/21 11/14/21 Rx olanzapine 10 mg tablet 10 mg PO DAILY #30 tab 09/05/21 11/16/21 11/15/21 Rx naproxen 375 mg tablet,delayed 375 mg PO PRN 11/16/21 11/16/21 11/02/21 History release Allergies Allergy/AdvReac Type Severity Reaction Status Date / Time risperidone [From Risperdal] AdvReac Severe Seizure Verified 11/14/21 08:41 like activity Current Medications Generic Name Dose Route Start Last Admin Trade Name Freq PRN Reason Stop Dose Admin Sodium Chloride 1,000 mls @ 30 mls/hr 11/16/21 07:00 11/16/21 07:09 Sodium Chloride 0.9% IV 11/17/21 06:59 30 mls/hr .Q24H DERRICK Administration PFSH Anesthesia Medical History (Updated 10/04/21 @ 14:04 by Daryn Schultz DO) ADD (attention deficit disorder) ADHD Adult attention deficit disorder Asperger's syndrome 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 Environmental and seasonal allergies Schizencephaly Scoliosis of thoracic spine Vitamin D insufficiency Surgical History History of tonsillectomy and adenoidectomy Status post left foot surgery Bunionectomy Family History Other Cancer Diabetes Lung disease Social History Smoking and tobacco status: never smoked Second hand smoke exposure: No Smoking risk assessment/counseling performed?: No Alcohol intake: never Desire information about alcohol rehabilitation?: No Counseling given: No Desire information about substance/drug rehabilitation?: No Counseling given: No Caregiver/support person: Yes Lives independently: No Household members: family Housing: House Marital status: Single Number of children: 0 service: No Current occupational status: disabled History of recent travel: No Current gender identity: Male Data Anesthesia Cardiac Studies: No Data to Display
[2021-11-16 08:49] VITALS: BP 103/65; PULSE 74; RESP 18; TEMP 36.7; O2SAT 98
[2021-11-16 09:15] VITALS: BP 112/64; PULSE 72; RESP 18; O2SAT 98
--- NOTE | 2021-11-16 16:16 | ANE.PACU2 ---
Inpatient post-anesthesia follow up: Airway intact: Yes Vital signs: Temperature 98.0 F Pulse Rate 72 Respiratory Rate 18 Blood Pressure 112/64 Pulse Oximetry 98 Oxygen Delivery Me thod Room Air Oxygen Flow Rate Fraction of Inspir ed Oxygen Hydration adequate: Yes Nausea and vomiting: No Pain level: 1 Mental status: Baseline
== END 2021-11-16 09:16 | disposition home or self-care (01) ==
PROVIDERS: PCP Nurse Practitioner; Visit Provider Surgery
PROC: 0DJ08ZZ Inspection of Upper Intestinal Tract, Via Natural or Artificial Opening Endoscopic (ICD-10-PCS; CPT 43235; principal; 2021-11-16 08:00)
DX: K92.0 Hematemesis (principal); R10.9 Unspecified abdominal pain; F98.8 Other specified behavioral and emotional disorders with onset usually occurring in childhood and adolescence; F90.9 Attention-deficit hyperactivity disorder, unspecified type
CPT/HCPCS: 43235; J2704; J7030

== ENCOUNTER → 2021-11-22 08:26 | Outpatient (BNVA) | payer MEDICARE, MEDICAID, SELFPAY | PROVIDERS: PCP Nurse Practitioner; Visit Provider Nurse Practitioner Family | DX: K81.9 Cholecystitis, unspecified (principal); R93.2 Abnormal findings on diagnostic imaging of liver and biliary tract; Z11.59 Encounter for screening for other viral diseases | CPT/HCPCS: 86705; 86706; 86709; 86803; 87340 ==

== ENCOUNTER 2021-12-24 13:26 | Emergency (ER) | payer MEDICARE, MEDICAID, SELFPAY ==
[2021-12-24 13:51] VITALS: BP 100/65; PULSE 91; RESP 16; TEMP 36.4; O2SAT 97; BMI 17.6
--- NOTE | 2021-12-24 14:03 | XRR_ITS ---
PROCEDURE INFORMATION: Exam: XR Right Forearm Exam date and time: 12/24/2021 2:28 PM Age: 26 years old Clinical indication: Injury or trauma; Fall; Blunt trauma (contusions or hematomas); Arm, lower; Right; Additional info: Pain after injury yesterday TECHNIQUE: Imaging protocol: Radiologic exam of the Right forearm. Views: 2 views. COMPARISON: No relevant prior studies available. FINDINGS: Bones/joints: Slight anteromedial bowing of the proximal radial shaft with no discrete fracture line or callus formation. Considerations include acute plastic bowing injury (which is somewhat rare in adult) versus developmental/chronic posttraumatic deformity. Clinical correlation is needed. No dislocation. Complete closures of all physes are observed. Soft tissues: Normal. Other findings: Two views submitted. XR/XR forearm RT 2V [id number] IMPRESSION: Slight bowing of the proximal radial shaft with no discrete fracture line. See discussion above.
--- NOTE | 2021-12-24 14:03 | W.ED.EXTPRO ---
HPI - Extremity Problem General: Chief complaint: Extremity Injury, Upper Stated complaint: arm injury Time Seen by Provider: 12/24/21 14:02 Source: patient and family Mode of arrival: ambulatory Limitations: physical limitation History of Present Illness: 26-year-old male with history of seizure disorder, epilepsy, and Asperger's syndrome presents to the ER with mother today for right forearm pain. Patient was out of [employer] event yesterday and had a seizure, falling and striking his right arm on the bleachers. Mother reports he had a midshaft. Patient seemed okay yesterday however started complaining last night and then is still complaining this morning of his right arm hurting. Mother reports patient does not normally complain of pain at all. Mother denies any swelling or bruising. Patient has full range of motion but does complain of pain. 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 Environmental and seasonal allergies Schizencephaly Scoliosis of thoracic spine Vitamin D insufficiency Surgical History History of tonsillectomy and adenoidectomy Status post left foot surgery Bunionectomy Family History Other Cancer Diabetes Lung disease Social History Smoking and tobacco status: never smoked Second hand smoke exposure: No Smoking risk assessment/counseling performed?: No Alcohol intake: never Desire information about alcohol rehabilitation?: No Counseling given: No Desire information about substance/drug rehabilitation?: No Counseling given: No Caregiver/support person: Yes Lives independently: No Household members: family Housing: House Marital status: Single Number of children: 0 service: No Current occupational status: disabled History of recent travel: No Current gender identity: Male Physical Exam Const: COMMON NORMALS: no acute distress, average body habitus, healthy appearing, alert and well nourished Resp: COMMON NORMALS: normal respiratory effort EFFORT & INSPECTION: Yes able to speak in complete sentences Cardio: COMMON NORMALS: regular rate and regular rhythm RATE: regular rate RHYTHM: regular rhythm Extremity: NARRATIVE EXTREMITY EXAM: Patient has mild tenderness of the proximal radius of the right forearm. Normal range of motion. No obvious swelling or deformity is noted. Patient's right arm appears to be congenitally smaller than the left arm. Neuro: SENSORIUM/ORIENTATION: Yes alert Psych: COMMON NORMALS: cooperative Skin: COMMON NORMALS: no rashes or lesions noted and no wounds GENERAL SKIN EXAM: no rashes or lesions noted Course ED course: 26-year-old male with history of seizure disorder, epilepsy, and Asperger's syndrome presents to the ER with mother today for right forearm pain. Patient was out of [employer] event yesterday and had a seizure, falling and striking his right arm on the bleachers. Mother reports he had a midshaft. Patient seemed okay yesterday however started complaining last night and then is still complaining this morning of his right arm hurting. Mother reports patient does not normally complain of pain at all. Mother denies any swelling or bruising. Patient has full range of motion but does complain of pain. We will get x-ray of the forearm today. Vital Signs: Vital signs: Vital Signs Temperature 97.6 F 12/24/21 13:51 Pulse Rate 91 12/24/21 13:51 Respiratory Rate 16 12/24/21 13:51 Blood Pressure 100/65 12/24/21 13:51 Pulse Oximetry 97 12/24/21 13:51 Oxygen Delivery Me thod 12/24/21 13:51 MDM - Extremity (Nontraumatic) Medical Decision Making 26-year-old male with history of seizure disorder, epilepsy, and Asperger's syndrome presents to the ER with mother today for right forearm pain. Patient was out of [employer] event yesterday and had a seizure, falling and striking his right arm on the bleachers. Mother reports he had a midshaft. Patient seemed okay yesterday however started complaining last night and then is still complaining this morning of his right arm hurting. Mother reports patient does not normally complain of pain at all. Mother denies any swelling or bruising. Patient has full range of motion but does complain of pain. X-ray of the forearm is normal. Patient likely has a contusion. Recommended ice and ibuprofen for pain. Follow-up with PCP in 7 to 10 days if no improvement. Return to the ER with any new or worsening symptoms. Mother verbalized understanding and was in agreement with the treatment plan. Lab Data Radiology Impressions Forearm X-Ray 12/24/21 14:03 IMPRESSION: Slight bowing of the proximal radial shaft with no discrete fracture line. See discussion above. Critical Care Time Critical Care Time: Critical Care Time: No Discharge Plan Discharge Patient Disposition: Home Clinical Impression: Contusion of forearm, right Qualifiers: Encounter type: initial encounter Qualified Code(s): S50.11XA - Contusion of right forearm, initial encounter Condition: Stable Prescriptions: No Action ondansetron HCl [Zofran] 4 mg tablet 4 mg PO Q8H PRN (Reason: nausea and vomiting) 7 Days Qty: 21 0RF lamotrigine [Lamictal] 200 mg tablet 200 mg PO BID Qty: 60 5RF levetiracetam [Keppra] 500 mg tablet 500 mg PO BID Qty: 60 5RF lorazepam 2 mg tablet 2 mg PO DAILY PRN (Reason: seizures) Qty: 30 5RF olanzapine 10 mg tablet 10 mg PO DAILY Qty: 30 5RF naproxen 375 mg tablet,delayed release (DR/EC) 375 mg PO PRN Discharge Orders: Discharge ED (Routine); Ordered 12/24/21 Ordered By: Dalia Nj Referrals: Sia Valdez, ELEMENTARY CLASSROOM TEACHER-C [Primary Care Provider] - Discharge Diet: Usual diet Discharge Activity: Resume usual activity Patient Instructions: Opioid Safety Activity Restrictions/Additional Instructions: Apply ice to reduce pain and swelling. Take anti-inflammatory as discussed. Follow-up with PCP in 7 to 10 days if no improvement. Return to the ER with any new or worsening symptoms. Coding Level of Care Code ED Passenger Brakeman for Makenzie Medina
== END 2021-12-24 15:34 | disposition home or self-care (01) ==
PROVIDERS: Emergency Provider Physician Assistant; PCP Nurse Practitioner
DX: S50.11XA Contusion of right forearm, initial encounter (principal); F84.5 Asperger's syndrome; W18.39XA Other fall on same level, initial encounter
CPT/HCPCS: 73090; 99283

== ENCOUNTER 2021-12-26 08:45 | Outpatient (CLI) | payer MEDICARE, MEDICAID, SELFPAY ==
--- NOTE | 2021-12-26 10:00 | NM_ITS ---
WS: [id number] NUCLEAR MEDICINE HIDA SCAN CLINICAL INFORMATION: R10.9 - Unspecified abdominal pain TECHNIQUE: Following intravenous administration of 8.2 mCi of technetium 99m mebrofenin, images of th e abdomen were obtained over the course of 60 minutes. Next, gallbladder ejection fraction was determ ined by obtaining preprandial and one-hour postprandial images of the gallbladder following oral kesha stion of Ensure. COMPARISON: Ultrasound September 24, 2021 FINDINGS: Normal hepatic uptake at 5 minutes. Normal hepatic excretion. Gallbladder is visualized by 10 minutes . Gallbladder is distended by 60 minutes. No evidence of acute cholecystitis. Normal small bowel and common bile duct activity. Gallbladder ejection fraction 60% within normal limits. No evidence of chr onic cholecystitis. NM/NM hepatobiliary w phar* [id number] IMPRESSION: 1. No evidence of acute or chronic cholecystitis. 2. Gallbladder ejection fraction 60% within normal limits.
== END 2021-12-26 08:46 | disposition home or self-care (01) ==
LOC: RAD 08:47
PROVIDERS: PCP Nurse Practitioner; Visit Provider Surgery
DX: R10.9 Unspecified abdominal pain (principal)
CPT/HCPCS: 78227; A9537

== ENCOUNTER → 2022-03-06 10:05 | Outpatient (BNVA) | payer MEDICARE, MEDICAID, SELFPAY | PROVIDERS: PCP Nurse Practitioner; Visit Provider Specialist | DX: G40.209 Localization-related (focal) (partial) symptomatic epilepsy and epileptic syndromes with complex partial seizures, not intractable, without status epilepticus (principal); F84.5 Asperger's syndrome; Z71.89 Other specified counseling; Z79.899 Other long term (current) drug therapy | CPT/HCPCS: 93005; 99214 ==

== ENCOUNTER → 2022-03-14 14:00 | Outpatient (BNVA) | payer MEDICARE, MEDICAID, SELFPAY | PROVIDERS: PCP Nurse Practitioner; Referring Provider Nurse Practitioner Family; Visit Provider Nurse Practitioner Family | DX: L08.9 Local infection of the skin and subcutaneous tissue, unspecified (principal); S90.812A Abrasion, left foot, initial encounter; S99.922A Unspecified injury of left foot, initial encounter | CPT/HCPCS: 73630 ==

== ENCOUNTER → 2022-04-06 09:39 | Outpatient (BNVA) | payer MEDICARE, MEDICAID, SELFPAY | PROVIDERS: PCP Nurse Practitioner; Visit Provider Podiatrist Foot & Ankle Surgery | DX: S90.812A Abrasion, left foot, initial encounter (principal); G60.0 Hereditary motor and sensory neuropathy; W21.31XA Struck by shoe cleats, initial encounter; Y93.79 Activity, other specified sports and athletics | CPT/HCPCS: 73630; 99204 ==

== ENCOUNTER → 2022-05-04 08:56 | Outpatient (BNVA) | payer MEDICARE, MEDICAID, SELFPAY | PROVIDERS: PCP Nurse Practitioner; Visit Provider Podiatrist Foot & Ankle Surgery | DX: S90.812A Abrasion, left foot, initial encounter (principal); X58.XXXA Exposure to other specified factors, initial encounter; G60.0 Hereditary motor and sensory neuropathy | CPT/HCPCS: 99213 ==

== ENCOUNTER → 2023-03-06 10:13 | Outpatient (BNVA) | payer MEDICARE, MEDICAID, SELFPAY | PROVIDERS: PCP Nurse Practitioner; Visit Provider Specialist | DX: G40.909 Epilepsy, unspecified, not intractable, without status epilepticus (principal); F84.5 Asperger's syndrome; G40.109 Localization-related (focal) (partial) symptomatic epilepsy and epileptic syndromes with simple partial seizures, not intractable, without status epilepticus | CPT/HCPCS: 99214 ==

== ENCOUNTER → 2023-06-14 13:20 | Outpatient (BNVA) | payer MEDICARE, MEDICAID, SELFPAY | PROVIDERS: PCP Nurse Practitioner; Visit Provider Nurse Practitioner Family | DX: R50.9 Fever, unspecified (principal) | CPT/HCPCS: 87400 ==

== ENCOUNTER → 2024-03-05 09:32 | Outpatient (BNVA) | payer MEDICARE, MEDICAID, SELFPAY | PROVIDERS: PCP Nurse Practitioner; Visit Provider Specialist | DX: G40.109 Localization-related (focal) (partial) symptomatic epilepsy and epileptic syndromes with simple partial seizures, not intractable, without status epilepticus (principal) | CPT/HCPCS: 99213 ==

== ENCOUNTER 2024-04-14 20:14 | Emergency (ER) | payer MEDICARE, MEDICAID, SELFPAY ==
--- NOTE | 2024-04-14 20:15 | XRR_ITS ---
PROCEDURE INFORMATION: Exam: XR Right Foot Exam date and time: 04/14/2024 8:43 PM Age: 28 years old Clinical indication: Injury or trauma; Other: Twisted RT foot ankle TECHNIQUE: Imaging protocol: Radiologic exam of the right foot. Views: 3 or more views. COMPARISON: No relevant prior studies available. FINDINGS: Bones/joints: There is a subtle linear lucency through the base of the 5th metatarsal suspicious for a nondisplaced fracture. Soft tissues: Mild soft tissue swelling over the lateral aspect of the foot. XR/XR foot RT min 3V* [id number] IMPRESSION: Probable nondisplaced fracture of the base of the 5th metatarsal.
--- NOTE | 2024-04-14 20:15 | XRR_ITS ---
PROCEDURE INFORMATION: Exam: XR Right Ankle Exam date and time: 04/14/2024 8:44 PM Age: 28 years old Clinical indication: Injury or trauma; Other: Twisted RT foot ankle TECHNIQUE: Imaging protocol: Radiologic exam of the right ankle. Views: 3 or more views. COMPARISON: CR (LOW EXM, ) 04/14/2024 8:43 PM FINDINGS: Bones/joints: Normal. Soft tissues: Normal. XR/XR ankle RT min 3V* [id number] IMPRESSION: No acute findings.
[2024-04-14 20:40] VITALS: BP 133/77; PULSE 78; RESP 16; TEMP 36.6; O2SAT 99
--- NOTE | 2024-04-14 21:17 | ED_ITS ---
HPI - Extremity Problem General: Chief complaint: Extremity Injury, Lower Stated complaint: Rt Foot Injury Time Seen by Provider: 04/14/24 20:54 Source: patient Mode of arrival: ambulatory Limitations: no limitations History of Present Illness: 28-year-old male states he is playing [employer] sketball today landed on his right foot wrong has been having bruising and pain to the lateral portion of his right foot states pain is a 5 out of 10 hurts worse with walking on it denies any other injuries. Associated symptoms: Deny chest pain, fever(s) or rash Related Data Home Medications Medication Instructions Recorded Confirmed naproxen 375 mg tablet,delayed 375 mg PO PRN 11/16/21 03/05/24 release Previous Rx's Medication Instructions Recorded mupirocin 2 % topical ointment 1 applic topical TID #15 grams 03/09/22 lorazepam 2 mg tablet 2 mg PO DAILY PRN seizures #30 tabs 02/25/24 lamotrigine 200 mg tablet See Rx Instructions .Route 03/05/24 .COMPLEX #180 tabs levetiracetam 500 mg tablet See Rx Instructions .Route 03/05/24 .COMPLEX #180 tabs olanzapine 10 mg tablet See Rx Instructions .Route 03/05/24 .COMPLEX #90 tabs Allergies Allergy/AdvReac Type Severity Reaction Status Date / Time risperidone [From Risperdal] AdvReac Severe Seizure Verified 04/14/24 20:44 like activity Review of Systems Const: Denies: fever(s), chills, body aches or change in appetite ENMT: Denies: throat pain or dental pain Card: Denies: chest pain Resp: Denies: dyspnea GI: Denies: abdominal pain, nausea, vomiting or diarrhea Musc: Reports: extremity pain; Denies: neck pain or back pain Skin/Breast: Denies: rash Neuro: Denies: headache(s) PFSH ED PFSH: Medical History Chronic brain-hydrocephalus syndrome ADHD ADD (attention deficit disorder) 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 Vitamin D insufficiency Scoliosis of thoracic spine Adult attention deficit disorder Schizencephaly Asperger's syndrome Complex partial epilepsy with generalization Environmental and seasonal allergies Surgical History Status post left foot surgery Bunionectomy History of tonsillectomy and adenoidectomy Family History Other Cancer Diabetes Lung disease Social History Smoking and tobacco/nicotine status: never used tobacco/nicotine Second hand smoke exposure: No Alcohol intake: never Substance/Drug Use: never Caregiver/support person: Yes Lives independently: No Household members: family Housing: House Marital status: Single Number of children: 0 service: No Current occupational status: disabled Do you think of yourself as: Straight/Heterosexual Current gender identity: Male Physical Exam Const: COMMON NORMALS: no acute distress, patient oriented x3 and healthy appearing HENMT: COMMON NORMALS: normocephalic and atraumatic HEAD & SCALP: normocephalic and atraumatic Eye: COMMON NORMALS: conjunctivae normal CONJUNCTIVA: Yes conjunctivae normal Neck/C-Spine: COMMON NORMALS: full ROM and supple Chest: COMMONS NORMALS: normal inspection of the chest Resp: COMMON NORMALS: normal respiratory effort Cardio: COMMON NORMALS: regular rate RATE: regular rate Extremity: NARRATIVE EXTREMITY EXAM: Bruising and tenderness over right lateral foot Neuro: COMMON NORMALS: patient oriented x3, moves all extremities and no focal motor deficits Psych: COMMON NORMALS: mental status grossly normal, Normal thought process present and cooperative THOUGHT PROCESS: Normal thought process present Skin: COMMON NORMALS: no rashes or lesions noted and no wounds GENERAL SKIN EXAM: no rashes or lesions noted Course Vital Signs: Vital signs: Vital Signs Temperature 97.8 F 04/14/24 20:40 Pulse Rate 78 04/14/24 20:40 Respiratory Rate 16 04/14/24 20:40 Blood Pressure 133/77 04/14/24 20:40 Pulse Oximetry 99 04/14/24 20:40 MDM - Extremity (Nontraumatic) Medical Decision Making Patient presents here with a fracture to his fifth metatarsal he is to be nonweightbearing we will place him in a splint he is to follow-up with podiatry return if worsening. Medical Records I reviewed the patient's medical records. XR interpretation done by ED provider, pending radiology final review ED provider radiology interpretation(s): X-ray right foot fracture to proximal portion of fifth metatarsal Discharge Plan Discharge Patient Disposition: Home Clinical Impression: Closed fracture of fifth metatarsal bone Qualifiers: Encounter type: initial encounter Fracture alignment: nondisplaced Laterality: right Qualified Code(s): S92.354A - Nondisplaced fracture of fifth metatarsal bone, right foot, initial encounter for closed fracture Condition: Stable Prescriptions: No Action mupirocin 2 % ointment 1 applic topical TID Qty: 15 0RF levetiracetam 500 mg tablet See Rx Instructions .ROUTE .COMPLEX Qty: 180 3RF Dose Instruction: TAKE ONE TABLET BY MOUTH TWICE DAILY Rx Instructions: TAKE ONE TABLET BY MOUTH TWICE DAILY lamotrigine 200 mg tablet See Rx Instructions .ROUTE .COMPLEX Qty: 180 3RF Dose Instruction: TAKE ONE TABLET BY MOUTH TWICE DAILY Rx Instructions: TAKE ONE TABLET BY MOUTH TWICE DAILY olanzapine 10 mg tablet See Rx Instructions .ROUTE .COMPLEX Qty: 90 3RF Dose Instruction: TAKE ONE TABLET BY MOUTH DAILY Rx Instructions: TAKE ONE TABLET BY MOUTH DAILY lorazepam 2 mg tablet 2 mg PO DAILY PRN (Reason: seizures) Qty: 30 5RF naproxen 375 mg tablet,delayed release (DR/EC) 375 mg PO PRN Discharge Orders: Discharge ED (Routine); Ordered 04/14/24 Ordered By: Elsa Magallanes Referrals: Sia Valdez, CONCRETE PIPE PLANT SUPERVISOR-C [Primary Care Provider] - Steve Teresa DPM [Physician] - 1-3 days Discharge Diet: Advance as tolerated Discharge Activity: Resume usual activity Patient Instructions: Foot Fracture in Adults (ED) Coding Level of Care Code ED Adhesive Bandage Making Operator for Makenzie Medina
[2024-04-14 21:42] VITALS: BP 121/68; PULSE 72; RESP 16; O2SAT 99
--- NOTE | 2024-04-16 09:22 | DCPLANNER ---
messaged podiatry for er f/u
== END 2024-04-14 21:44 | disposition home or self-care (01) ==
PROVIDERS: Emergency Provider Emergency Medicine; PCP Nurse Practitioner
DX: S92.354A Nondisplaced fracture of fifth metatarsal bone, right foot, initial encounter for closed fracture (principal); X58.XXXA Exposure to other specified factors, initial encounter; Y93.67 Activity, basketball
CPT/HCPCS: 29515; 73610; 73630; 99283; E0114

== ENCOUNTER → 2024-04-20 12:40 | Outpatient (BNVA) | payer MEDICARE, MEDICAID, SELFPAY | PROVIDERS: PCP Nurse Practitioner; Visit Provider Podiatrist Foot & Ankle Surgery | DX: S92.354A Nondisplaced fracture of fifth metatarsal bone, right foot, initial encounter for closed fracture (principal); X58.XXXA Exposure to other specified factors, initial encounter | CPT/HCPCS: 73630; 99213 ==

== ENCOUNTER 2024-04-20 13:08 | Outpatient (CLI) | payer MEDICARE, MEDICAID, SELFPAY | END 2024-04-20 13:09 | disposition home or self-care (01) | LOC: SPT 13:10 | PROVIDERS: PCP Nurse Practitioner; Visit Provider Podiatrist Foot & Ankle Surgery | DX: Z46.89 Encounter for fitting and adjustment of other specified devices (principal); M79.671 Pain in right foot | CPT/HCPCS: L4361 ==

== ENCOUNTER → 2024-05-04 15:03 | Outpatient (BNVA) | payer MEDICARE, MEDICAID, SELFPAY | PROVIDERS: PCP Nurse Practitioner; Visit Provider Podiatrist Foot & Ankle Surgery | DX: M79.671 Pain in right foot (principal); S92.354A Nondisplaced fracture of fifth metatarsal bone, right foot, initial encounter for closed fracture; X58.XXXA Exposure to other specified factors, initial encounter | CPT/HCPCS: 73630; 99213 ==

== ENCOUNTER → 2024-05-19 16:43 | Outpatient (BNVA) | payer MEDICARE, MEDICAID, SELFPAY | PROVIDERS: PCP Nurse Practitioner; Visit Provider Podiatrist Foot & Ankle Surgery | DX: S92.354A Nondisplaced fracture of fifth metatarsal bone, right foot, initial encounter for closed fracture; X58.XXXA Exposure to other specified factors, initial encounter | CPT/HCPCS: 73620; 73630; 99213 ==